=== PATIENT | female | born 1945 | race Caucasian/White ===

== ENCOUNTER → 2020-09-05 | Outpatient (CLI) | payer MEDICARE, BC | LOC: LAB SHORT 09:00 → LAB 09:00 | DX: R10.30 Lower abdominal pain, unspecified (principal) | CPT/HCPCS: 87338 ==

== ENCOUNTER → 2021-07-23 | Outpatient (CLI) | payer MEDICARE, BC ==
[2021-07-23 18:43] LABS: BASOPHILS ABSOLUTE AUTO 0.02 K/mm3 (0.00-0.23); BASOPHILS PERCENT AUTO 0 % (0-2); EOSINOPHILS ABSOLUTE AUTO 0.17 K/mm3 (0.00-0.68); EOSINOPHILS PERCENT AUTO 2 % (0-6); Hematocrit 43.4 % (33.0-51.0); Hemoglobin 13.7 g/dL (11.5-16.0); IMMATURE GRAN ABSOLUTE AUTO 0.04 K/mm3 (0.00-0.10); IMMATURE GRAN PERCENT AUTO 1 % (0-1); LYMPHOCYTES ABSOLUTE AUTO 1.01 K/mm3 (0.84-5.20); LYMPHOCYTES PERCENT AUTO 13 % (21-46); MONOCYTES ABSOLUTE AUTO 0.79 K/mm3 (0.16-1.47); MONOCYTES PERCENT AUTO 10 % (4-13); Mean Corpuscular HGB 28.1 pg (26.0-34.0); Mean Corpuscular HGB Conc 31.6 g/dL (31.5-36.5); Mean Corpuscular Volume 89 fL (80-100); Mean Platelet Volume 9.1 fL (9.1-12.4); NEUTROPHILS ABSOLUTE AUTO 6.08 K/mm3 (1.96-9.15); NEUTROPHILS PERCENT AUTO 75 % (41-73); Platelet Count 328 K/mm3 (150-400); RDW Coefficient Variation 15.7 % (11.7-14.2); RDW Standard Deviation 50.7 fL (35.1-46.3); Red Blood Cell Count 4.87 M/mm3 (3.80-5.20); White Blood Cell Count 8.11 K/mm3 (4.00-11.30)
[2021-07-23 18:57] LABS: Alanine Aminotransfer (ALT/SGP 20 U/L (12-78); Albumin, Blood 3.1 g/dL (3.4-5.0); Alk Phos 90 U/L (40-126); Anion Gap 8 mmol/L (6-16); Aspartate Aminotrans (AST/SGOT 14 U/L (12-37); Bilirubin, Total 0.3 mg/dL (0.1-1.0); Blood Urea Nitrogen 20 mg/dL (8-24); Bun/Creatinine Ratio 23.8 (12.0-20.0); CO2, Blood 29 mmol/L (21-32); Calcium, Blood 8.5 mg/dL (8.5-10.1); Chloride, Blood 106 mmol/L (98-108); Creatinine, Blood 0.84 mg/dL (0.40-1.00); Globulin, Blood 3.1 g/dL (2.2-4.0); Glomerular Filtration Rate >60 (60-); Glucose, Blood 98 mg/dL (70-99); Potassium, Blood 4.3 mmol/L (3.5-5.5); Sodium, Blood 143 mmol/L (136-145); Total Protein, Blood 6.2 g/dL (6.4-8.2)
== END | disposition home or self-care (01) ==
LOC: LAB 18:39 → LAB SHORT 18:39
PROVIDERS: Family Medicine
DX: R07.9 Chest pain, unspecified (principal)
CPT/HCPCS: 80053; 84484; 85025

== ENCOUNTER 2022-04-07 06:11 | Day surgery (SDC) | payer MEDICARE, BC ==
[~2022-04-07] VITALS: Ht 162.6 cm; Wt 90.9 kg
[~2022-04-07 06:11] MED LIST: CLOP75 PO; ESCI20 PO; LEVSOD75 PO; Metrogel 1% 6060 GM TOP; NITR2.5ER SL; Robaxin750 MG PO; Tizanidine HCl2 MG PO
--- NOTE | 2022-04-07 07:26 | NUR ---
History, Chart, Medications and Allergies reviewed before start of procedure. Patient confirms NPO status and agrees with scheduled surgery. PT REPORTS TOLERATING OTHER NSAIDS CONFIRMED WITH PHARMACY OKAY TO GIVE KETOROLAC IN JOINT COCKTAIL. HEARING AIDS LEFT IN PER PT REQUEST. ROMÁN BROWN NOTIFIED HEARING AIDS LEFT IN. TOOK ALL OTHER BELONGINGS.
[2022-04-07] MEDS ORDERED: CLOP75 PO (09:36)
--- NOTE | 2022-04-07 10:03 | NUR ---
SLIGHT SHIVERING WHEN I HAVE HER DO DEEP BREATHING THE SHIVERING APPEARS TO STOP
--- NOTE | 2022-04-07 10:30 | NUR ---
ARRIVAL PATIENT TO UNIT VIA BED. AQUACEL, SAMARA WRAP, & POLAR PACK TO LLE. PATIENT HAS FULL SENSATION TO LEFT LEG, WIGGLES TOES APPROPRIATELY. LUNGS CLEAR, VSS ON RA. ORIENTED TO ROOM & CALL LIGHT.
--- NOTE | 2022-04-07 16:52 | NUR ---
SHIFT SUMMARY NO ACUTE CHANGES SINCE ARRIVAL TO UNIT. POD 0 L TKA. AQUACEL, SAMARA WRAP, & POLAR PACK TO LEFT KNEE. AMBULATING WELL W/ 1P ASSIST TO BATHROOM & CHAIR. PAIN MANAGED PER EMAR. EATING, DRINKING, & VOIDING WELL. CALL LIGHT IN REACH, WILL REPORT TO ONCOMING RN.
--- NOTE | 2022-04-08 05:23 | NUR ---
POD1 FOR A LEFT TKA. AQUACEL DRESSING AND SAMARA WRAP REMAINS C/D/I. CIRCULATION AND SENSATION REMAINS INTACT. CRYO MACHINE HAS REMAINED ON T/O THE NIGHT. THE PATIENT HAS SLEPT ON AND OFF T/O THE NIGHT. MEDICATED FOR PAIN WITH OXY AND DILAUDID. AMBULATED PT IN THE ROOM ONCE, WEAKNESS NOTED. T/O THE NIGHT THE PATIENT C/O HER LLE FEELING HEAVY, BUT IS ABLE TO AMBULATE AND BEAR WEIGHT APPROPRIATELY WITH ENCOURAGEMENT. EDUCATED ON THE IMPORTANCE OF EARLY AMBULATION, PT TOLLERATED PO INTAKE WELL. VOIDING W/O DIFFICULTY. PT REFUSED AM LABS THIS AM, STATED SHE HAD JUST FELL ASLEEP AND DID NOT WANT TO BE BOTHERED. THE PATIENT IS CURRENTLY SLEEPING IN NO DISTRESS, CALL LIGHT IN REACH
[2022-04-08] MEDS ORDERED: Percocet 5-3251 EACH PO (08:24)
[2022-04-08 09:08] LABS: BASOPHILS ABSOLUTE AUTO 0.03 K/mm3 (0.00-0.23); BASOPHILS PERCENT AUTO 0 % (0-2); EOSINOPHILS ABSOLUTE AUTO 0.06 K/mm3 (0.00-0.68); EOSINOPHILS PERCENT AUTO 1 % (0-6); Hematocrit 37.6 % (33.0-51.0); IMMATURE GRAN ABSOLUTE AUTO 0.02 K/mm3 (0.00-0.10); IMMATURE GRAN PERCENT AUTO 0 % (0-1); LYMPHOCYTES PERCENT AUTO 5 % (21-46); MONOCYTES ABSOLUTE AUTO 1.11 K/mm3 (0.16-1.47); MONOCYTES PERCENT AUTO 10 % (4-13); Mean Corpuscular HGB 28.4 pg (26.0-34.0); Mean Corpuscular HGB Conc 31.9 g/dL (31.5-36.5); Mean Corpuscular Volume 89 fL (80-100); Mean Platelet Volume 9.1 fL (9.1-12.4); NEUTROPHILS ABSOLUTE AUTO 9.25 K/mm3 (1.96-9.15); NEUTROPHILS PERCENT AUTO 84 % (41-73); Platelet Count 318 K/mm3 (150-400); RDW Coefficient Variation 15.1 % (11.7-14.2); RDW Standard Deviation 49.5 fL (35.1-46.3); Red Blood Cell Count 4.22 M/mm3 (3.80-5.20); White Blood Cell Count 11.07 K/mm3 (4.00-11.30)
[2022-04-08 09:23] LABS: Bun/Creatinine Ratio 17.3 (12.0-20.0); Calcium, Blood 8.1 mg/dL (8.5-10.1); Creatinine, Blood 0.7 mg/dL (0.40-1.00); Potassium, Blood 3.9 mmol/L (3.5-5.5)
--- NOTE | 2022-04-08 10:37 | NUR ---
DISCHARGE SUMMARY PT A&OX4, VSS/RA, DANIELA PO, VOIDING WELL, AMB SBA FWW GB, PAIN MANAGED 09/14 AT THIS TIME, IV DC'D. DC INS PROVIDED. PT REP UNDERSTANDING THOSE INSTRUCTIONS INCLUDING FU APPT, DRESSING CHANGES, MEDS/PLAVIX. LEFT FLOOR VIA WC WITH STUDIO MODEL TO GO HOME WITH WITH ALL PERSONAL POSSESSIONS INCLUDING DC PACKET, 1 NARC SCRIPT, AQUACEL DRESSINGS X2.
== END 2022-04-08 10:22 | disposition home or self-care (01) ==
LOC: ORSCMMR 06:11 → ORD 07:30 → SURS 10:54 → ORSCMMR 04-08 10:22
PROVIDERS: Orthopaedic Surgery
PROC: 0SRD0JA Replacement of Left Knee Joint with Synthetic Substitute, Uncemented, Open Approach (ICD-10-PCS; principal; 2022-04-07 07:30)
PROC: 8E0Y0CZ Robotic Assisted Procedure of Lower Extremity, Open Approach (ICD-10-PCS; principal; 2022-04-07 07:30)
DX: M17.12 Unilateral primary osteoarthritis, left knee (principal); E03.9 Hypothyroidism, unspecified; G47.33 Obstructive sleep apnea (adult) (pediatric); J44.9 Chronic obstructive pulmonary disease, unspecified; I25.10 Atherosclerotic heart disease of native coronary artery without angina pectoris; Z79.02 Long term (current) use of antithrombotics/antiplatelets; Z79.899 Other long term (current) drug therapy; E66.9 Obesity, unspecified; Z68.34 Body mass index [BMI] 34.0-34.9, adult
CPT/HCPCS: 27447; 20985; S2900; 36415; 73560-LT; 80048; 85025; 97110; 97116; 97161; 97530; A9270; C1776; J0171; J0690; J0735; J1100; J1170; J1885; J2370; J2405; J2704; J2795; J3010; J3370; J7120

== ENCOUNTER → 2022-05-05 | Outpatient (CLI) | payer MEDICARE, BC ==
[~2022-05-05] MED LIST changes: +Percocet 5-3251 EACH PO
== END ==
LOC: LAB SHORT 16:20 → LAB 16:20
DX: R35.0 Frequency of micturition (principal)
CPT/HCPCS: 87086

== ENCOUNTER → 2022-05-20 | Outpatient (CLI) | payer MEDICARE, BC ==
[2022-05-20 17:48] LABS: Appearance, Urine Cloudy (Clear); Blood, Urine 1+ (Neg); Glucose Qualitative, Urine Neg (Neg); Ketones, Urine Neg (Neg); Leukocyte Esterase, Urine Neg (Neg); Nitrite, Urine Pos (Neg); Protein, Urine 2+ (Neg); Specific Gravity, Urine 1.025 (1.003-1.022); Urobilinogen, Urine 3+ (Normal)
[2022-05-20 18:18] LABS: Bilirubin, Urine 3+ (Neg); Calcium Oxalate Crystals Many /hpf; Color, Urine Orange (P-Yellow)
[2022-05-20 18:19] LABS: Bacteria Many /hpf; Red Blood Cells, Urine 0-2 /hpf (0-2); Squamous Epithelial Cells Mod /hpf (Few)
== END ==
LOC: LAB SHORT 15:30
PROVIDERS: Family Medicine
DX: R30.0 Dysuria (principal)
CPT/HCPCS: 81001; 87086

== ENCOUNTER → 2022-05-25 | Outpatient (CLI) | payer MEDICARE, BC | LOC: LAB 16:50 → LAB SHORT 16:50 | DX: R30.0 Dysuria (principal) | CPT/HCPCS: 87086 ==

== ENCOUNTER → 2022-05-29 | Outpatient (CLI) | payer MEDICARE, BC ==
[2022-05-29 15:37] LABS: Source, Urine Clean Catch
[2022-05-29 17:17] LABS: Appearance, Urine Cloudy (Clear); Bilirubin, Urine Neg (Neg); Blood, Urine 2+ (Neg); Color, Urine Yellow (P-Yellow); Glucose Qualitative, Urine Neg (Neg); Ketones, Urine Neg (Neg); Leukocyte Esterase, Urine 2+ (Neg); Nitrite, Urine Neg (Neg); Protein, Urine 1+ (Neg); Specific Gravity, Urine 1.025 (1.003-1.022); Urobilinogen, Urine NORM (Normal)
[2022-05-29 17:37] LABS: Amorphous Light (0-Heavy); Bacteria Many /hpf; Mucus Light (0-Heavy); Red Blood Cells, Urine 0-2 /hpf (0-2); Squamous Epithelial Cells Many /hpf (Few)
[2022-05-29 17:38] LABS: Calcium Oxalate Crystals Many /hpf
== END ==
LOC: LAB 13:54 → LAB SHORT 13:54
PROVIDERS: Obstetrics & Gynecology
DX: R30.0 Dysuria (principal)
CPT/HCPCS: 81001; 87086

== ENCOUNTER → 2022-06-03 | Outpatient (CLI) | payer MEDICARE, BC ==
[2022-06-03 10:52] LABS: Source, Urine Clean Catch
[2022-06-03 13:18] LABS: Appearance, Urine Hazy (Clear); Bilirubin, Urine Neg (Neg); Blood, Urine 2+ (Neg); Color, Urine Yellow (P-Yellow); Glucose Qualitative, Urine Neg (Neg); Ketones, Urine Neg (Neg); Leukocyte Esterase, Urine 1+ (Neg); Nitrite, Urine Neg (Neg); Protein, Urine 1+ (Neg); Urobilinogen, Urine NORM (Normal)
[2022-06-03 13:39] LABS: Bacteria Few /hpf; Red Blood Cells, Urine 0-2 /hpf (0-2); Squamous Epithelial Cells Many /hpf (Few); White Blood Cells, Urine 0-2 /hpf (0-5)
[2022-06-03 13:40] LABS: Calcium Oxalate Crystals Many /hpf
== END ==
LOC: LAB SHORT 10:49
PROVIDERS: Obstetrics & Gynecology
DX: R30.0 Dysuria (principal)
CPT/HCPCS: 81001; 87086

== ENCOUNTER → 2022-06-22 | Outpatient (CLI) | payer MEDICARE, BC | END | disposition home or self-care (01) | LOC: LAB 14:30 → LAB SHORT 14:30 | DX: L03.313 Cellulitis of chest wall (principal) | CPT/HCPCS: 87070; 87205 ==

== ENCOUNTER → 2023-06-11 | Outpatient (CLI) | payer MEDICARE, BC | END | disposition home or self-care (01) | LOC: LAB SHORT 17:02 → LAB 17:02 | DX: N39.0 Urinary tract infection, site not specified (principal) | CPT/HCPCS: 87086 ==

== ENCOUNTER 2023-06-30 20:07 | Emergency (ER) | payer MEDICARE, BC ==
[~2023-06-30] VITALS: Ht 162.6 cm; Wt 97.1 kg
[2023-06-30 20:46] LABS: BASOPHILS ABSOLUTE AUTO 0.05 K/mm3 (0.00-0.23); BASOPHILS PERCENT AUTO 1 % (0-2); EOSINOPHILS ABSOLUTE AUTO 0.23 K/mm3 (0.00-0.68); EOSINOPHILS PERCENT AUTO 3 % (0-6); Hemoglobin 13.7 g/dL (11.5-16.0); IMMATURE GRAN ABSOLUTE AUTO 0.07 K/mm3 (0.00-0.10); IMMATURE GRAN PERCENT AUTO 1 % (0-1); LYMPHOCYTES PERCENT AUTO 12 % (21-46); MONOCYTES PERCENT AUTO 10 % (4-13); Mean Corpuscular HGB 29.8 pg (26.0-34.0); Mean Corpuscular HGB Conc 32.6 g/dL (31.5-36.5); Mean Corpuscular Volume 92 fL (80-100); Mean Platelet Volume 9.1 fL (9.1-12.4); NEUTROPHILS ABSOLUTE AUTO 5.92 K/mm3 (1.96-9.15); NEUTROPHILS PERCENT AUTO 73 % (41-73); Platelet Count 335 K/mm3 (150-400); RDW Coefficient Variation 15.2 % (11.7-14.2); Red Blood Cell Count 4.59 M/mm3 (3.80-5.20); White Blood Cell Count 8.07 K/mm3 (4.00-11.30)
[2023-06-30 21:09] LABS: Bilirubin, Total 0.4 mg/dL (0.1-1.0); Bun/Creatinine Ratio 28.4 (12.0-20.0); Calcium, Blood 8.8 mg/dL (8.5-10.1); Creatinine, Blood 0.85 mg/dL (0.40-1.00); Potassium, Blood 3.8 mmol/L (3.5-5.5)
[2023-06-30] MEDS ORDERED: Prednisone10 MG PO (23:08)
[2023-06-30] MEDS ORDERED: PREGABALIN75 MG PO (23:08)
[2023-07-01 00:30] VITALS: BP 131/67
== END 2023-07-01 00:55 | disposition home or self-care (01) ==
LOC: ER 20:07
PROVIDERS: Student in an Organized Health Care Education/Training Program
DX: R07.9 Chest pain, unspecified (principal); M35.3 Polymyalgia rheumatica; Z79.02 Long term (current) use of antithrombotics/antiplatelets; Z79.899 Other long term (current) drug therapy; Z88.6 Allergy status to analgesic agent; Z91.018 Allergy to other foods
CPT/HCPCS: 71045; 80053; 84484; 85025; 93005; 93010; 99285-25

== ENCOUNTER 2024-01-25 11:08 | Emergency (ER) | payer MEDICARE, BC ==
[~2024-01-25] VITALS: Ht 162.6 cm; Wt 99.8 kg
[~2024-01-25 11:08] MED LIST changes: +PREGABALIN75 MG PO; +Prednisone10 MG PO
[2024-01-25 11:30] LABS: BASOPHILS ABSOLUTE AUTO 0.03 K/mm3 (0.00-0.23); BASOPHILS PERCENT AUTO 1 % (0-2); EOSINOPHILS ABSOLUTE AUTO 0.14 K/mm3 (0.00-0.68); EOSINOPHILS PERCENT AUTO 3 % (0-6); Hematocrit 39.1 % (33.0-51.0); Hemoglobin 12.5 g/dL (11.5-16.0); IMMATURE GRAN ABSOLUTE AUTO 0.05 K/mm3 (0.00-0.10); IMMATURE GRAN PERCENT AUTO 1 % (0-1); LYMPHOCYTES ABSOLUTE AUTO 0.89 K/mm3 (0.84-5.20); LYMPHOCYTES PERCENT AUTO 17 % (21-46); MONOCYTES ABSOLUTE AUTO 0.61 K/mm3 (0.16-1.47); MONOCYTES PERCENT AUTO 11 % (4-13); Mean Corpuscular HGB 28.6 pg (26.0-34.0); Mean Corpuscular Volume 90 fL (80-100); Mean Platelet Volume 9.3 fL (9.1-12.4); NEUTROPHILS ABSOLUTE AUTO 3.66 K/mm3 (1.96-9.15); NEUTROPHILS PERCENT AUTO 68 % (41-73); Platelet Count 303 K/mm3 (150-400); RDW Coefficient Variation 15.1 % (11.7-14.2); RDW Standard Deviation 49.8 fL (35.1-46.3); Red Blood Cell Count 4.37 M/mm3 (3.80-5.20); White Blood Cell Count 5.38 K/mm3 (4.00-11.30)
[2024-01-25 11:51] LABS: Albumin/Globulin Ratio 0.9 (0.8-1.8); Bilirubin, Total 0.6 mg/dL (0.1-1.0); Bun/Creatinine Ratio 24.8 (12.0-20.0); Creatinine, Blood 0.73 mg/dL (0.40-1.00); Globulin, Blood 3.4 g/dL (2.2-4.0); Potassium, Blood 4.9 mmol/L (3.5-5.5); Total Protein, Blood 6.4 g/dL (6.4-8.2)
[2024-01-25] MEDS ORDERED: Robaxin750 MG PO (12:07)
[2024-01-25 13:45] VITALS: BP 141/58
== END 2024-01-25 13:58 | disposition home or self-care (01) ==
LOC: ER 11:08
PROVIDERS: Emergency Medicine
DX: R07.9 Chest pain, unspecified (principal); I10 Essential (primary) hypertension; K21.9 Gastro-esophageal reflux disease without esophagitis
CPT/HCPCS: 71045; 80053; 84484; 85025; 93005; 93010; 99285-25

== ENCOUNTER 2024-04-14 11:17 | Emergency (ER) | payer MEDICARE, BC ==
[~2024-04-14] VITALS: Ht 162.6 cm; Wt 101.2 kg
[2024-04-14 11:31] VITALS: BP 135/74
[2024-04-14 12:06] LABS: BASOPHILS ABSOLUTE AUTO 0.03 K/mm3 (0.00-0.23); BASOPHILS PERCENT AUTO 0 % (0-2); EOSINOPHILS ABSOLUTE AUTO 0.21 K/mm3 (0.00-0.68); EOSINOPHILS PERCENT AUTO 3 % (0-6); Hemoglobin 14.4 g/dL (11.5-16.0); IMMATURE GRAN ABSOLUTE AUTO 0.04 K/mm3 (0.00-0.10); IMMATURE GRAN PERCENT AUTO 1 % (0-1); LYMPHOCYTES PERCENT AUTO 10 % (21-46); MONOCYTES ABSOLUTE AUTO 0.73 K/mm3 (0.16-1.47); MONOCYTES PERCENT AUTO 9 % (4-13); Mean Corpuscular HGB 28.8 pg (26.0-34.0); Mean Corpuscular HGB Conc 32.7 g/dL (31.5-36.5); Mean Corpuscular Volume 88 fL (80-100); Mean Platelet Volume 9.4 fL (9.1-12.4); NEUTROPHILS ABSOLUTE AUTO 6.19 K/mm3 (1.96-9.15); NEUTROPHILS PERCENT AUTO 77 % (41-73); Platelet Count 334 K/mm3 (150-400); RDW Coefficient Variation 15.1 % (11.7-14.2); RDW Standard Deviation 48.5 fL (35.1-46.3)
[2024-04-14 12:16] LABS: Albumin, Blood 3.3 g/dL (3.4-5.0); Albumin/Globulin Ratio 0.8 (0.8-1.8); Bilirubin, Total 0.3 mg/dL (0.1-1.0); Bun/Creatinine Ratio 28.5 (12.0-20.0); Creatinine, Blood 0.7 mg/dL (0.40-1.00); Globulin, Blood 3.9 g/dL (2.2-4.0); Potassium, Blood 4.3 mmol/L (3.5-5.5); Total Protein, Blood 7.2 g/dL (6.4-8.2)
== END 2024-04-14 13:23 | disposition home or self-care (01) ==
LOC: ER 11:17
PROVIDERS: Physician Assistant
DX: S60.512A Abrasion of left hand, initial encounter (principal); L08.9 Local infection of the skin and subcutaneous tissue, unspecified; W55.03XA Scratched by cat, initial encounter; Z88.8 Allergy status to other drugs, medicaments and biological substances; Z88.6 Allergy status to analgesic agent; Z91.018 Allergy to other foods; Z79.899 Other long term (current) drug therapy
CPT/HCPCS: 80053; 83605; 85025; 99283

== ENCOUNTER → 2024-08-10 | Outpatient (CLI) | payer MEDICARE, BC ==
[2024-08-10 20:34] LABS: Bacterial Vaginosis PCR Negative (NEGATIVE); Candida Group, PCR NOT DETECTED (NOT DETECT)
[2024-08-11 00:02] LABS: Candida glabrata-krusei, PCR DETECTED (NOT DETECT)
== END ==
LOC: LAB 18:09 → LAB SHORT 18:09
PROVIDERS: Family Medicine
DX: N76.0 Acute vaginitis (principal)
CPT/HCPCS: 81515

== ENCOUNTER 2024-09-28 07:33 | Day surgery (SDC) | payer MEDICARE, BC ==
[~2024-09-28] VITALS: Ht 162.6 cm; Wt 98.9 kg
[~2024-09-28 07:33] MED LIST changes: +FentaNYL Citrate 50 MCG/ML 2 ML Injection ONE; +Midazolam HCl 1MG / ML 2ML Vial ONE; +propofoL 20 ML IV ONE
[2024-09-28] MEDS ORDERED: Lactated Ringer's 1,000 ML IV ONE ×2 (08:10→09:17)
[2024-09-28] MEDS ORDERED: Dexamethasone Sod Phos 10 MG/ML 1ML VIAL ONE (08:28)
[2024-09-28] MEDS ORDERED: Ondansetron HCl 2 MG / ML 2ML Vial ONE (08:28)
--- NOTE | 2024-09-28 09:32 | NUR ---
09/28/24 0932 SONDRA CURTIS UP IN CHAIR, ALERT, TOLERATING APPLE JUICE. ATTEMPTED TO USE BEDPAN BUT DID NOT VOID. SCANT BLOOD TO PAWEL AREA.
[2024-09-28 09:36] VITALS: BP 106/75
--- NOTE | 2024-09-28 11:12 | NUR ---
09/28/24 1112 Toby Bain NORMAL SALINE FLUID DEFICIT OF 100ML. NOTIFIED.
== END 2024-09-28 10:18 | disposition home or self-care (01) ==
LOC: ORSCSDS 07:33
PROVIDERS: Obstetrics & Gynecology
PROC: 0UB98ZZ Excision of Uterus, Via Natural or Artificial Opening Endoscopic (ICD-10-PCS; principal; 2024-09-28 08:30)
PROC: 0UBC8ZZ Excision of Cervix, Via Natural or Artificial Opening Endoscopic (ICD-10-PCS; principal; 2024-09-28 08:30)
DX: N95.0 Postmenopausal bleeding (principal); N84.0 Polyp of corpus uteri; R93.89 Abnormal findings on diagnostic imaging of other specified body structures; I10 Essential (primary) hypertension; I25.10 Atherosclerotic heart disease of native coronary artery without angina pectoris; G47.33 Obstructive sleep apnea (adult) (pediatric); J44.9 Chronic obstructive pulmonary disease, unspecified; Z79.899 Other long term (current) drug therapy; E03.9 Hypothyroidism, unspecified; E78.5 Hyperlipidemia, unspecified; F41.8 Other specified anxiety disorders
CPT/HCPCS: 88305; J1100; J2250; J2405; J2704; J3010; J7120